=== PATIENT | female | born 1935 | race Caucasian/White ===

== ENCOUNTER 2023-03-02 13:17 | Inpatient (IN) | payer OTHER, MEDICAID ==
[~2023-03-02] VITALS: Ht 162.6 cm; Wt 56.0 kg
[2023-03-02 14:04] LABS: Basophils # (auto) 0.1 10 ^3/uL (0-0.2); Basophils % (auto) 0.8 % (0.0-2.0); Eosinophils # (auto) 0.1 10 ^3/uL (0-0.8); Eosinophils % (auto) 0.9 % (0.0-7.0); Hematocrit 39.8 % (36.0-46.0); Hemoglobin 13.3 g/dL (12.2-16.2); Lymphocytes # (auto) 1.5 10 ^3/uL (0.4-5.4); Mean Corpuscular Hgb Conc. 33.3 g/dL (32.0-36.0); Monocytes # (auto) 0.9 10 ^3/uL (0-1.3); Monocytes % (auto) 14.5 % (0.0-12.0); Neutrophils # (auto) 3.9 10 ^3/uL (1.6-8.6); Neutrophils % (auto) 60.8 % (37.0-80.0); Red Blood Cells 4.28 10^6/uL (4.0-5.20); Red Cell Distribution Width 13.3 % (11.8-14.3); White Blood Cell 6.4 10^3/uL (4.4-10.8)
[2023-03-02 14:42] LABS: Albumin 3.7 g/dL (3.4-5.0); Calcium 8.7 mg/dL (8.5-10.1)
[2023-03-02 14:44] LABS: BUN/Creatinine Ratio 11.3 (10.0-20.0); Bilirubin, Total 0.6 mg/dL (0.2-1.0); Total Protein 7.1 g/dL (6.4-8.2)
[2023-03-02] MEDS ORDERED: HYDROcodone-ACET 5/325MG TAB PO PRN (15:15)
[2023-03-02] MEDS ORDERED: dilTIAZem 25 MG/5 ML VIAL IV PRN (15:15)
[2023-03-02] MEDS ORDERED: DOCUSATE SOD 100 MG CAP PO PRN (15:15)
[2023-03-02] MEDS ORDERED: METOPROLOL TARTRATE 25 MG TAB PO SCH (15:15)
[2023-03-02] MEDS ORDERED: ONDANSETRON HCL 4 MG/2 ML VIAL IV PRN (15:15)
[2023-03-02 16:22] LABS: Urine Bacteria NONE SEEN /hpf (None Seen); Urine Blood Negative /uL (Negative); Urine Mucus FEW (None Seen); Urine Specific Gravity 1.021 (1.001-1.035); Urine WBC 55 /hpf (0 - 5)
[2023-03-02] MEDS: dilTIAZem 125mg/125ml BAG KIT 100 ML IV SCH ×2 (16:45→20:38)
[2023-03-02] MEDS ORDERED: dilTIAZem 25 MG/5 ML VIAL IV ONE (16:45)
[2023-03-03] MEDS: SODIUM CHLOR 0.9% PF (SALINE LOCK) 10ML VIAL/SYR IV SCH ×4 (00:12→22:54)
[2023-03-03] MEDS: FLUTICASONE PROP NASAL SPR 0.05 % (50MCG) 16GM EACHNOSTRI SCH (10:14)
[2023-03-03] MEDS: ATORVASTATIN 20 MG TAB PO SCH (10:14)
[2023-03-03] MEDS: MONTELUKAST SODIUM 10 MG TAB PO SCH (10:15)
[2023-03-03] MEDS: METOPROLOL SUCCINATE XL 50 MG TAB PO SCH (10:16)
[2023-03-03] MEDS: dilTIAZem HCL 180MG ER CAP PO SCH (10:17)
[2023-03-03] MEDS: amLODIPine BESYLATE 5 MG TAB PO SCH (10:18)
[2023-03-03] MEDS: MEMANTINE HCL 5 MG TAB PO SCH (10:19)
[2023-03-03] MEDS: ACETAMINOPHEN 325 MG TAB PO PRN ×2 (13:35→20:01)
[2023-03-03] MEDS: cefTRIAXone 1GM/50ML D5W 50 ML IV SCH (13:48)
[2023-03-03] MEDS ORDERED: DIGOXIN (250MCG/ML) 2 ML AMPULE IV ONE (14:30)
[2023-03-03 17:26] LABS: Basophils # (auto) 0 10 ^3/uL (0-0.2); Basophils % (auto) 0.6 % (0.0-2.0); Eosinophils # (auto) 0.1 10 ^3/uL (0-0.8); Eosinophils % (auto) 0.8 % (0.0-7.0); Hematocrit 36.1 % (36.0-46.0); Hemoglobin 12.1 g/dL (12.2-16.2); Lymphocytes % (auto) 12.5 % (10.0-50.0); Mean Corpuscular Hgb Conc. 33.6 g/dL (32.0-36.0); Mean Corpuscular Volume 92.2 fL (80.0-100.0); Monocytes % (auto) 12.7 % (0.0-12.0); Neutrophils % (auto) 73.4 % (37.0-80.0); Red Blood Cells 3.91 10^6/uL (4.0-5.20); Red Cell Distribution Width 13.5 % (11.8-14.3); White Blood Cell 8.2 10^3/uL (4.4-10.8)
[2023-03-03 17:42] LABS: Albumin 3.2 g/dL (3.4-5.0); Calcium 8.3 mg/dL (8.5-10.1)
[2023-03-03 17:54] LABS: BUN/Creatinine Ratio 18.3 (10.0-20.0); Bilirubin, Total 0.5 mg/dL (0.2-1.0)
[2023-03-03] MEDS ORDERED: AMLO1TAB22 PO (22:36)
[2023-03-03] MEDS ORDERED: LOVA20TA4 PO (22:36)
[2023-03-03] MEDS ORDERED: APIX2.5T PO (22:36)
[2023-03-03] MEDS ORDERED: ZAFI1TAB3 PO (22:36)
[2023-03-03] MEDS ORDERED: METO25TA93 PO (22:36)
[2023-03-03] MEDS ORDERED: ALBU108A5 INH (22:36)
[2023-03-03] MEDS ORDERED: MEMA1TAB3 PO (22:36)
[2023-03-03] MEDS ORDERED: LATA0.008 (22:36)
[2023-03-03 22:57] VITALS: BP 144/78
[2023-03-03 23:14] VITALS: BP 155/85
[2023-03-04 05:00] VITALS: BP 125/64
[2023-03-04] MEDS: SODIUM CHLOR 0.9% PF (SALINE LOCK) 10ML VIAL/SYR IV SCH ×2 (06:20→16:46)
[2023-03-04 08:00] VITALS: BP 100/73
[2023-03-04 09:00] VITALS: BP 100/73
[2023-03-04] MEDS: cefTRIAXone 1GM/50ML D5W 50 ML IV SCH (09:34)
[2023-03-04] MEDS: MEMANTINE HCL 5 MG TAB PO SCH (09:35)
[2023-03-04] MEDS: MONTELUKAST SODIUM 10 MG TAB PO SCH (09:35)
[2023-03-04] MEDS: ATORVASTATIN 20 MG TAB PO SCH (09:35)
[2023-03-04] MEDS: dilTIAZem HCL 180MG ER CAP PO SCH (09:35)
[2023-03-04] MEDS: amLODIPine BESYLATE 5 MG TAB PO SCH (09:36)
[2023-03-04] MEDS: METOPROLOL SUCCINATE XL 50 MG TAB PO SCH (09:36)
[2023-03-04] MEDS: FLUTICASONE PROP NASAL SPR 0.05 % (50MCG) 16GM EACHNOSTRI SCH (10:24)
[2023-03-04] MEDS ORDERED: APIXABAN 5 MG TAB PO SCH (12:00)
[2023-03-04] MEDS ORDERED: APIXABAN 2.5 MG TAB PO SCH (12:15)
[2023-03-04] MEDS ORDERED: FLUT1INH6 IN (12:17)
[2023-03-04] MEDS ORDERED: DILT60TA PO (12:17)
[2023-03-04 13:00] VITALS: BP 138/71
[2023-03-04 17:00] VITALS: BP 118/79
[2023-03-04] MEDS ORDERED: AMOX875T4 PO (19:03)
[2023-03-04 19:15] VITALS: BP 118/79
== END 2023-03-04 20:15 | disposition home health service (06) | DRG 309 ==
LOC: ER 13:17 → OVERFLOW 16:43 → TELE-EAST 03-03 22:23
PROVIDERS: ADMIT Internal Medicine; ATTEND Internal Medicine
DX: I48.19 Other persistent atrial fibrillation (principal); N39.0 Urinary tract infection, site not specified; F03.90 Unspecified dementia, unspecified severity, without behavioral disturbance, psychotic disturbance, mood disturbance, and anxiety; I10 Essential (primary) hypertension; J45.909 Unspecified asthma, uncomplicated; Z79.01 Long term (current) use of anticoagulants; Z90.710 Acquired absence of both cervix and uterus; Z93.3 Colostomy status; Z88.0 Allergy status to penicillin; Z88.8 Allergy status to other drugs, medicaments and biological substances; Z79.899 Other long term (current) drug therapy
CPT/HCPCS: 36415; 71045; 71275; 73600; 80053; 81001; 83605; 83880; 84443; 84484; 85025; 85379; 87086; 93005; 93306; 93971; 97163; G0378; J0696; J2405

== ENCOUNTER 2023-07-04 17:17 | Emergency (ER) | payer OTHER, MEDICAID ==
[~2023-07-04] VITALS: Ht 157.5 cm; Wt 46.6 kg
[~2023-07-04 17:17] MED LIST: ALBU108A5 INH; AMLO1TAB22 PO; AMOX875T4 PO; APIX2.5T PO; DILT60TA PO; FLUT1INH6 IN; LATA0.008; LOVA20TA4 PO; MEMA1TAB3 PO; METO25TA93 PO; ZAFI1TAB3 PO
[2023-07-04 18:38] VITALS: BP 153/68; PULSE 115; RESP 18; TEMP 97.5; O2SAT 97
[2023-07-04] MEDS ORDERED: TETANUS-DIPTH-ACEL PERTUSSIS 0.5ML SYR Tdap IM ONE (19:45)
[2023-07-04] MEDS ORDERED: LIDOCAINE 1% HCL (LOCAL ANESTH.) INJ 20ML MDV ID ONE (19:45)
[2023-07-04] MEDS ORDERED: CEPHALEXIN 250 MG CAP PO ONE (19:45)
[2023-07-04] MEDS ORDERED: MUPI2OIN2 EX (19:47)
[2023-07-04] MEDS ORDERED: CEPH500C PO (19:47)
== END 2023-07-04 20:28 | disposition home or self-care (01) ==
LOC: ER 17:17
DX: S61.214A Laceration without foreign body of right ring finger without damage to nail, initial encounter (principal); S60.221A Contusion of right hand, initial encounter; M19.041 Primary osteoarthritis, right hand; I10 Essential (primary) hypertension; E78.5 Hyperlipidemia, unspecified; J45.909 Unspecified asthma, uncomplicated; I48.91 Unspecified atrial fibrillation; Z85.9 Personal history of malignant neoplasm, unspecified; Z90.710 Acquired absence of both cervix and uterus; Z88.8 Allergy status to other drugs, medicaments and biological substances; Z79.899 Other long term (current) drug therapy; W22.8XXA Striking against or struck by other objects, initial encounter; Y93.89 Activity, other specified; Y92.89 Other specified places as the place of occurrence of the external cause; Y99.8 Other external cause status
CPT/HCPCS: 12002; 73130; 90471; 90715; 93005; 99283; J2001; 12001

== ENCOUNTER 2024-03-07 09:25 | Inpatient (IN) | payer OTHER, MEDICAID ==
[~2024-03-07] VITALS: Ht 157.5 cm; Wt 55.8 kg
[~2024-03-07 09:25] MED LIST changes: +CEPH500C PO; +MUPI2OIN2 EX; -ZAFI1TAB3 PO; +ZAFI20TA12 PO
[2024-03-07 09:53] LABS: Basophils # (auto) 0.1 10 ^3/uL (0-0.2); Basophils % (auto) 0.6 % (0.0-2.0); Eosinophils # (auto) 0.2 10 ^3/uL (0-0.8); Eosinophils % (auto) 2.1 % (0.0-7.0); Hematocrit 37.4 % (36.0-46.0); Hemoglobin 12.5 g/dL (12.2-16.2); Lymphocytes # (auto) 1.4 10 ^3/uL (0.4-5.4); Lymphocytes % (auto) 14.2 % (10.0-50.0); Mean Corpuscular Hemoglobin 30.4 pg (28.0-32.0); Mean Corpuscular Hgb Conc. 33.4 g/dL (32.0-36.0); Mean Corpuscular Volume 91.1 fL (80.0-100.0); Monocytes # (auto) 1.1 10 ^3/uL (0-1.3); Monocytes % (auto) 11.4 % (0.0-12.0); Neutrophils # (auto) 7.2 10 ^3/uL (1.6-8.6); Neutrophils % (auto) 71.7 % (37.0-80.0); Nucleated Red Blood Cells % 0.1 %; Red Blood Cells 4.11 10^6/uL (4.0-5.20); Red Cell Distribution Width 14.6 % (11.8-14.3); White Blood Cell 10.1 10^3/uL (4.4-10.8)
[2024-03-07 09:59] VITALS: PULSE 112; RESP 19; O2SAT 98
[2024-03-07 10:09] LABS: INR 1.02 (0.9-1.15); Partial Thromboplastin Time 25.7 SEC (24.5-34.5); Prothrombin Time 10.8 sec (9.3-11.8)
[2024-03-07 10:14] LABS: Alanine Aminotransferase 30 U/L (7-40); Albumin 4.6 g/dL (3.2-4.8); Alkaline Phosphatase 193 U/L (46-116); Anion Gap 6 (5-15); Aspartate Aminotransferase 29 U/L (13-40); BUN/Creatinine Ratio 21.1 (10.0-20.0); Blood Urea Nitrogen 19 mg/dL (9-23); Calcium 9.4 mg/dL (8.5-10.1); Carbon Dioxide 27 mmol/L (20-30); Chloride 106 mmol/L (98-107); Glucose 122 mg/dL (74-106); Potassium 3.8 mmol/L (3.5-5.1); Sodium 139 mmol/L (136-145)
[2024-03-07 10:15] LABS: Bilirubin, Total 0.5 mg/dL (0.2-1.0); Total Protein 6.9 g/dL (5.7-8.2)
[2024-03-07] MEDS: SODIUM CHLORIDE 0.9% 1,000 ML IV ONE (11:00)
[2024-03-07 11:05] LABS: Urine Bacteria None Seen /hpf (None Seen)
[2024-03-07 11:15] LABS: Urine Blood Negative /uL (Negative); Urine Clarity Clear (Clear); Urine Protein, UAD Negative (Negative); Urine Specific Gravity 1.005 (1.001-1.035); Urine Urobilinogen Normal (Negative); Urine WBC <1 /hpf (0 - 5); Urine pH 5.5 (5.0-9.0)
[2024-03-07 11:19] LABS: Urine Color Light Yellow (Yellow)
[2024-03-07 13:03] LABS: Rapid Influenza A Negative (Negative); Rapid Influenza B Negative (Negative)
[2024-03-07 13:04] LABS: COVID19 ANTIGEN SOFIA FIA NEGATIVE (NEGATIVE)
[2024-03-07] MEDS: SODIUM CHLORIDE 0.9% 1,000 ML IV SCH (15:15)
[2024-03-07] MEDS ORDERED: hydrALAZINE HCL 20 MG/ML VL IV PRN (15:30)
[2024-03-07] MEDS ORDERED: DIGO0.12 PO (15:39)
[2024-03-07 15:53] LABS: Triglycerides 66 mg/dL (< 150)
[2024-03-07 15:54] LABS: LDL Cholesterol 75 mg/dL (< 100)
[2024-03-07 15:55] LABS: Cholesterol 153 mg/dL (< 200); HDL Cholesterol 67 mg/dL (40-59)
[2024-03-07] MEDS: MAGNESIUM OXIDE 400 MG TAB PO ONE (16:58)
[2024-03-07 18:02] VITALS: BP 150/92; PULSE 113; RESP 19; TEMP 98; O2SAT 97
[2024-03-07 18:48] VITALS: BP 150/92; PULSE 113; RESP 19; TEMP 98; O2SAT 97
[2024-03-07 20:00] VITALS: PULSE 104; PULSE 129; PULSE 57; RESP 18; O2SAT 96
[2024-03-07 21:00] VITALS: BP 126/69; PULSE 104; RESP 18; TEMP 98.1; O2SAT 95
[2024-03-07] MEDS: APIXABAN 2.5 MG TAB PO SCH (21:25)
[2024-03-07] MEDS: MAGNESIUM OXIDE 400 MG TAB PO SCH (21:26)
[2024-03-07] MEDS: LOVASTATIN 20 MG PO SCH (21:27)
[2024-03-07] MEDS: [UNRECOGNIZED DRUG - OTHER] PO SCH (21:27)
[2024-03-08] VITALS (8 sets, daily range): BP systolic 128–140; BP diastolic 71–89; PULSE 90–142; RESP 17–20; TEMP 97.9–98.6; O2SAT 90–97
[2024-03-08 05:54] LABS: Basophils # (auto) 0 10 ^3/uL (0-0.2); Basophils % (auto) 0.3 % (0.0-2.0); Eosinophils # (auto) 0.1 10 ^3/uL (0-0.8); Eosinophils % (auto) 1.2 % (0.0-7.0); Hematocrit 35.2 % (36.0-46.0); Hemoglobin 11.9 g/dL (12.2-16.2); Lymphocytes # (auto) 1.4 10 ^3/uL (0.4-5.4); Lymphocytes % (auto) 15.8 % (10.0-50.0); Mean Corpuscular Hemoglobin 30.5 pg (28.0-32.0); Mean Corpuscular Hgb Conc. 33.8 g/dL (32.0-36.0); Mean Corpuscular Volume 90.2 fL (80.0-100.0); Monocytes # (auto) 1.2 10 ^3/uL (0-1.3); Monocytes % (auto) 13.6 % (0.0-12.0); Neutrophils # (auto) 6.2 10 ^3/uL (1.6-8.6); Neutrophils % (auto) 69.1 % (37.0-80.0); Nucleated Red Blood Cells % 0.1 %; Red Cell Distribution Width 14.4 % (11.8-14.3)
[2024-03-08 06:08] LABS: Alanine Aminotransferase 22 U/L (7-40); Alkaline Phosphatase 157 U/L (46-116); Anion Gap 6 (5-15); Aspartate Aminotransferase 21 U/L (13-40); BUN/Creatinine Ratio 18.3 (10.0-20.0); Blood Urea Nitrogen 11 mg/dL (9-23); Calcium 9.2 mg/dL (8.5-10.1); Carbon Dioxide 25 mmol/L (20-30); Chloride 105 mmol/L (98-107); Glucose 113 mg/dL (74-106); Potassium 4.1 mmol/L (3.5-5.1); Sodium 136 mmol/L (136-145)
[2024-03-08 06:09] LABS: Bilirubin, Total 0.8 mg/dL (0.2-1.0); Total Protein 6.1 g/dL (5.7-8.2)
[2024-03-08] MEDS: MEMANTINE HCL 5 MG TAB PO SCH (10:25)
[2024-03-08] MEDS: amLODIPine BESYLATE 5 MG TAB PO SCH (10:25)
[2024-03-08] MEDS: dilTIAZem HCL 180MG ER CAP PO SCH (10:26)
[2024-03-08] MEDS: DIGOXIN 0.125 MG TAB PO SCH (10:26)
[2024-03-08] MEDS: dilTIAZem HCL 180MG ER CAP PO ONE (17:26)
[2024-03-09] VITALS (8 sets, daily range): BP systolic 118–138; BP diastolic 64–76; PULSE 85–119; RESP 16–20; TEMP 97.8–98.3; O2SAT 93–97
[2024-03-09 07:20] LABS: Anion Gap 6 (5-15); Calcium 9.4 mg/dL (8.5-10.1); Carbon Dioxide 25 mmol/L (20-30); Chloride 106 mmol/L (98-107); Potassium 3.7 mmol/L (3.5-5.1); Sodium 137 mmol/L (136-145)
[2024-03-09 07:26] LABS: BUN/Creatinine Ratio 19.7 (10.0-20.0); Blood Urea Nitrogen 13 mg/dL (9-23); Glucose 136 mg/dL (74-106)
[2024-03-09 07:27] LABS: Magnesium 2.2 mg/dL (1.6-2.6)
[2024-03-09] MEDS: DIGOXIN (250MCG/ML) 2 ML AMPULE IV ONE (09:00)
[2024-03-09] MEDS: dilTIAZem HCL 180MG ER CAP PO SCH (10:35)
[2024-03-10 05:00] VITALS: BP 107/53; PULSE 98; RESP 18; TEMP 98.4; O2SAT 92
[2024-03-10 06:52] LABS: Anion Gap 6 (5-15); Carbon Dioxide 25 mmol/L (20-30); Chloride 107 mmol/L (98-107); Potassium 4.2 mmol/L (3.5-5.1); Sodium 138 mmol/L (136-145)
[2024-03-10 06:53] LABS: Calcium 8.7 mg/dL (8.5-10.1)
[2024-03-10 06:58] LABS: Blood Urea Nitrogen 9 mg/dL (9-23); Glucose 97 mg/dL (74-106)
[2024-03-10 07:07] LABS: Magnesium 2.2 mg/dL (1.6-2.6)
[2024-03-10 08:00] VITALS: PULSE 109
[2024-03-10 09:00] VITALS: BP 111/64; PULSE 89; RESP 20; TEMP 98.2; O2SAT 91
[2024-03-10] MEDS ORDERED: DILT360C17 PO (09:56)
[2024-03-10 13:01] VITALS: BP 120/51; PULSE 81; RESP 20; TEMP 97.8; O2SAT 96
[2024-03-10 13:34] VITALS: BP 111/64; PULSE 75; TEMP 36.6
== END 2024-03-10 14:50 | disposition home or self-care (01) | DRG 309 ==
LOC: ER 09:25 → TELE 15:16 → TELE-CENTR 17:40
PROVIDERS: ADMIT Registered Nurse; ATTEND Internal Medicine Geriatric Medicine
DX: I48.20 Chronic atrial fibrillation, unspecified (principal); D68.69 Other thrombophilia; I50.42 Chronic combined systolic (congestive) and diastolic (congestive) heart failure; E78.5 Hyperlipidemia, unspecified; I11.0 Hypertensive heart disease with heart failure; F03.A0 Unspecified dementia, mild, without behavioral disturbance, psychotic disturbance, mood disturbance, and anxiety; J45.909 Unspecified asthma, uncomplicated; Z20.822 Contact with and (suspected) exposure to COVID-19; I27.20 Pulmonary hypertension, unspecified; K74.60 Unspecified cirrhosis of liver; Z85.3 Personal history of malignant neoplasm of breast; Z88.1 Allergy status to other antibiotic agents; Z88.2 Allergy status to sulfonamides; Z79.899 Other long term (current) drug therapy; Z83.3 Family history of diabetes mellitus; Z82.49 Family history of ischemic heart disease and other diseases of the circulatory system; Z79.01 Long term (current) use of anticoagulants; Z90.710 Acquired absence of both cervix and uterus
CPT/HCPCS: 36415; 71045; 80048; 80053; 80061; 80162; 81001; 83036; 83605; 83735; 83880; 84443; 84484; 85025; 85379; 85610; 85730; 87040; 87426; 87804; 93005; 93306; G0378